=== PATIENT | male | born 1995 | race Caucasian/White ===

== ENCOUNTER 2020-02-09 00:24 | Emergency (ER) | payer OTHER ==
[~2020-02-09] VITALS: Ht 172.7 cm; Wt 58.7 kg
[2020-02-09 00:33] VITALS: BP 132/75
[2020-02-09] MEDS ORDERED: DIPH,PERTUSS(ACELL),TET VAC/PF 0.5 ML IM-VACC ONE (01:27)
[2020-02-09] MEDS ORDERED: LIDOCAINE-MPF 1%, 5ML ONE (01:27)
[2020-02-09] MEDS ORDERED: NEOSPORIN OINT. PKT 1 PACKET ONE (02:28)
[2020-02-09] MEDS ORDERED: LIDOCAINE 1%, 10ML INFIL ONE (02:30)
[2020-02-09] MEDS ORDERED: DIPH,PERTUSS(ACELL),TET VAC/PF NC IM-VACC ONE (02:30)
--- NOTE | 2020-02-09 02:53 | NUR ---
Bacitracin applied and dressing applied, pt and mother verbally educated of s/s of infection and when to take sutures out. Awaiting xr results for d/c.
== END 2020-02-09 03:34 ==
LOC: ED 01:50
DX: S71.111A Laceration without foreign body, right thigh, initial encounter (principal); S71.131A Puncture wound without foreign body, right thigh, initial encounter; W26.0XXA Contact with knife, initial encounter; Y93.89 Activity, other specified; Y92.69 Other specified industrial and construction area as the place of occurrence of the external cause; Y99.8 Other external cause status
CPT/HCPCS: 12031; 90471; 90715; 99284